=== PATIENT | female | born 1975 | race Caucasian/White ===

== ENCOUNTER 2024-10-12 12:34 | Outpatient (REF) | payer BC, SELFPAY ==
[2024-10-14 15:08] LABS: Age Gdln ACOG Testing Note (.); HPV Aptima Negative (Negative); IGP, Aptima HPV, rfx 16/18,45 Note (.)
== END 2024-10-12 12:35 | disposition home or self-care (01) ==
LOC: LAB 12:34
PROVIDERS: Visit Provider Obstetrics & Gynecology
DX: Z01.419 Encounter for gynecological examination (general) (routine) without abnormal findings (principal)
CPT/HCPCS: 87624; 88175

== ENCOUNTER 2024-10-20 13:15 | Outpatient (OUT) | payer BC, SELFPAY ==
--- NOTE | 2024-10-20 13:22 | ECG_ITS ---
[facility] Test Date: 2024-10-20 Pat Name: PETER PEÑA Department: Room: - Gender: Female Barrel Racer: : 1975 Requested By: INOCENCIO MCCARTHY Order Number: [id number] Reading MD: WANDA CLINE M.D. Measurements Intervals [place] Rate: 66 P: 65 NM: 135 QRS: 62 QRSD: 82 T: 58 QT: 383 QTc: 404 Interpretive Statements SINUS RHYTHM Normal ECG No previous ECG available for comparison Electronically Signed On 10-20-2024 21:11:30 EDT by WANDA CLINE M.D.
== END 2024-10-20 13:16 | disposition home or self-care (01) ==
LOC: PST 13:16
PROVIDERS: PCP Family Medicine Adult Medicine; Visit Provider Obstetrics & Gynecology
DX: Z01.810 Encounter for preprocedural cardiovascular examination (principal); N92.0 Excessive and frequent menstruation with regular cycle; N93.9 Abnormal uterine and vaginal bleeding, unspecified; R10.2 Pelvic and perineal pain
CPT/HCPCS: 93005

== ENCOUNTER 2024-10-29 08:37 | Day surgery (SDC) | payer BC, SELFPAY ==
[2024-10-20 13:41] VITALS: BP 111/76; PULSE 80; TEMP 36.4; O2SAT 98; BMI 23.1
[2024-10-29] VITALS (21 sets, daily range): BP systolic 106–135; BP diastolic 67–92; PULSE 61–101; TEMP 36–36.5; O2SAT 95–100; BMI 23.1
[2024-10-29 08:45] LABS: Basophils Percent Auto 0.8 % (0.2-2.0); Eosinophils Absolute Auto 0.2 10^3/uL (0.0-0.7); Eosinophils Percent Auto 4.1 % (0.9-7.0); Hematocrit 43.4 % (36.0-48.0); Hemoglobin 14.5 g/dL (12.0-16.0); Immature Granulocytes Abs Auto 0.01 10^3/uL (0.00-0.03); Immature Granulocytes Pct Auto 0.2 % (0.0-0.5); Lymphocytes Absolute Auto 1.5 10^3/uL (1.2-3.8); Lymphocytes Percent Auto 29.6 % (20.5-60.0); Mean Corpuscular HGB Conc 33.4 g/dL (29.9-35.2); Mean Corpuscular Hemoglobin 29.4 pg (26.7-34.0); Mean Platelet Volume 10.3 fL (9.5-13.5); Monocytes Absolute Auto 0.5 10^3/uL (0.3-0.8); Monocytes Percent Auto 9.1 % (1.7-12.0); Neutrophils Absolute Auto 2.9 10^3/uL (1.4-6.5); Neutrophils Percent Auto 56.2 % (43.0-75.0); Platelet Count 244 10^3/uL (150-450); Red Blood Count 4.93 10^6/uL (4.20-5.40); Red Cell Distribution Width 12.4 % (11.0-15.0); White Blood Count 5.1 10^3/uL (4.0-11.0)
[2024-10-29 09:05] LABS: HCG Quantitative 2 mIU/mL
[2024-10-29] MEDS: LACTATED RINGER'S SOLUTION 1,000 ML 50 ML IV ×4 (09:20→15:16)
--- NOTE | 2024-10-29 12:17 | P.ON_ITS ---
Brief Operative Note Date of procedure: 10/29/24 Pre-op diagnosis general: desires sterilization, menorrhagia Post-op diagnosis: same as pre-op Procedure: NAME OF PROCEDURE: robotic assisted Laparoscopic bilateral salpingectomy, with Lyla endometrial ablation with hysteroscopy, removal of iud, lt ovarian cystectomy PROCEDURE: The patient was taken back to the OR where she was prepped and draped in the normal sterile fashion after being placed in the dorsal lithotomy position, after being placed under general anesthesia without difficulty. a weighted speculum was then placed into the vagina. Pap and endometrial bx were performed without difficultyThe anterior lip was grasped with a single tooth tenaculum. please note prior to ablation, iud was removed with ring forceps after the strings where identified. The patient was then sounded to approximatley 9cm. The patient was gently sounded using Hegar dilators and the hysteroscope was passed through the cervix into the uterus where both ostia were seen. No gross evidence of polyps, fibroids or malignancy. The cervical length was noted to be 4cm. The Lyla ablation apparatus was set to approximately 5cm in length. This was placed in through the cervix and into the uterus. After the seal was tested, at that time the total ablation of 120 seconds was performed with the Lyla without difficulty. All instruments were removed from the vagina. A wet sponge stick was placed into the patient's vagina. Attention was then turned to the patient's abdomen, where a scalpel was used to make a small infraumbilical incision. The S retractors were then used to dissect the underlying layers until the fascia could be seen. The fascia was then grasped with Niesha clamps and tented up. A knife was then used to make a small incision to the fascia. The muscle was identified, at that time two sutures of #0 Vicryl on a GI needlewas then used and placed through the fascia. The peritoneum was then identified and entered bluntly. The 10-4 Jon was then placed into the patient's abdomen. This was confirmed with direct visualization of the bowel, using the laparoscope. The patient's abdomen was then insufflated using approximately 4 liters of CO2 gas. Survey of the patient's abdomen demonstrated normal appearing ovaries, uterus and tubes. A second and third lateral robotic ports, which was 8mm in size, was then placed laterally after incision was made in the skin under direct visualization. the robotic arms were engaged. The patient's tube on the patient's right side was identified. The tube was then tented up using a grasper. The ligasure was used to transect and coagulate the mesosalpingx from the fimbriated end to the insertion at the uterus, the tube was amputated and removed in its entirety.? Excellent hemostasis was noted. ?This was performed on the contralateral sideas well. Please note lt ovarian cystectomy performed using the vessel sealer. The lateral ports were then moved under direct visualization with excellent hemostasis. The abdomen was deinsufflated. All instruments were removed from the patient's abdomen. The fascia was closed using the #0 Vicryl on GI needle. The skin was closed using 4- 0 Vicryl subcuticularly. All instruments were removed from the patient's vagina as well. The patient was taken out of the dorsal lithotomy position and placed in the supine position and taken to recovery in stable condition. Sponge, lap and needle counts were correct x2. ??? Anesthesia: COLE Surgeon: Tommy Paul Prom Burn Off Operator: Claudia Tran Estimated blood loss (mL): 5 Pathology: other (tubes) Condition: stable Disposition: PACU Urinary Catheter Management Urinary Catheter Management Urethral: Cath placed during this visit: no
[2024-10-29] MEDS: HYDROMORPHONE HCL 0.5 MG/0.5 ML SYRINGE IV ×3 (13:07→13:25)
[2024-10-29] MEDS: HYDROCODONE/ACET 5-325 MG TABLET 1 TAB PO (13:27)
[2024-10-29] MEDS: PROMETHAZINE HCL 25 MG TABLET PO (15:02)
--- NOTE | 2024-10-29 15:12 | PC.NURSE ---
PATIENT UP AND AMBULATED TO THE BATHROOM TO TRY AND URINATE. BECAME NAUSEATED AND VOMITED BELLY ACID ASKED DR LINO FOR IV ZOFRAN GIVING AT THIS TIME
[2024-10-29] MEDS: ONDANSETRON PF 4 MG/2 ML VIAL IV (15:16)
== END 2024-10-29 17:05 | disposition home or self-care (01) ==
PROVIDERS: PCP Family Medicine Adult Medicine; Visit Provider Obstetrics & Gynecology
PROC: (CPT 840; principal; 2024-10-29 09:55)
DX: Z30.2 Encounter for sterilization (principal); N92.0 Excessive and frequent menstruation with regular cycle; N93.9 Abnormal uterine and vaginal bleeding, unspecified; R10.2 Pelvic and perineal pain; N83.202 Unspecified ovarian cyst, left side; Z30.432 Encounter for removal of intrauterine contraceptive device
CPT/HCPCS: 58301; 58563; 58661; 58662; 36415; 84702; 85025; J1100; J1171; J1885; J2250; J2371; J2405; J2704; J3010; Q0169

== ENCOUNTER 2025-01-06 16:17 | Outpatient (OUT) | payer BC, SELFPAY ==
--- OUTSIDE RECORDS SUMMARY | 2025-01-06 16:19 | XMS_ITS | Encounter Summary ---
Author Organization [facility] Address [address] [place] [address] Care Team Providers Care School Cleaner Name Role Phone Ernesto Head DO Primary Care Provider Encounter Details Date Type Department Care Team (Late st Contact Info) Description 11/01/2024 Abstract [facility] OB [address] [place] [address] Tommy Paul DO [address] [facility] [place] [address] Social History Tobacco Use Types Packs/Day Years Used Date Smoking Tobacco: Never Smokeless Tobacco: Never Alcohol Use Standard Drinks/Week Comments Never 0 (1 standard drink = 0.6 oz pur e alcohol) Caffeine: none Comments No Sex and Gender Information Value Date Recorded Sex Assigned at Not on file Legal Sex Female 6:53 PM EDT Gender Identity Not on file Sexual Orientation Not on file documented as of this encounter Plan of Treatment Not on file documented as of this encounter Visit Diagnoses Not on filedocumented in this encounter Care Teams School Cleaner Relationship Specialty Start Date End Date Ernesto Head DO [address] [place] [address] PCP - General Family Medicine 10/12/24 documented as of this encounter
--- OUTSIDE RECORDS SUMMARY | 2025-01-06 16:19 | XMS_ITS | Encounter Summary ---
Author Organization [facility] Address [address] [place] [address] Care Team Providers Care Education Officer Name Role Phone Ernesto Head DO Primary Care Provider Encounter Details Date Type Department Care Team (Late st Contact Info) Description 10/29/2024 Abstract [facility] OB [address] [place] [address] Tommy Paul DO [address] [facility] [place] [address] Social History Tobacco Use Types Packs/Day Years [...] on filedocumented in this encounter Care Teams Education Officer Relationship Specialty Start Date End Date Ernesto Head DO [address] [place] [address] PCP - General Family Medicine 10/12/24 documented as of this encounter
--- OUTSIDE RECORDS SUMMARY | 2025-01-06 16:19 | XMS_ITS | Encounter Summary ---
Author Organization [facility] Address [address] [place] [address] Care Team Providers Care Thoracic Surgeon Name Role Phone Ernesto Head DO Primary Care Provider Encounter Details Date Type Department Care Team (Late st Contact Info) Description 10/29/2024 Abstract [facility] OB [address] [address] Tommy Paul DO [address] [facility] [place] [address] Social History Tobacco Use Types Packs/Day Years [...] on filedocumented in this encounter Care Teams Thoracic Surgeon Relationship Specialty Start Date End Date Ernesto Head DO [address] [place] [address] PCP - General Family Medicine 10/12/24 documented as of this encounter
--- OUTSIDE RECORDS SUMMARY | 2025-01-06 16:19 | XMS_ITS | Encounter Summary ---
Author Organization [facility] Address [address] [place] [address] Care Team Providers Care Printer'S Assistant Name Role Phone JeanErnesto garcia Blank GAO Primary Care Provider [phone] Encounter Details Date Type Department Care Team (Late st Contact Info) Description 10/27/2024 Orders Only [facility] [address] [place] [address] Cami Schmitt LPN [address] [facility] [place] [address] Social History Tobacco Use Types Packs/Day Years [...] on file documented as of this encounter Procedures Procedure Name Priority Date/Time Associated Diagnosis Comments PAP SMEAR Routine 10/12/2024 12:00 AM EDT documented in this encounter Results * Pap Smear (10/12/2024 12:00 AM EDT) Swab Cervical swab / Unknown us Beverly Nurse [facility] LAB CYTOLOGY ORDERABLES Final Result EXTERNAL LAB documented in this encounter Visit Diagnoses Not on filedocumented in this encounter Care Teams Printer'S Assistant Relationship Specialty Start Date End Date Ernesto Head DO [address] [facility] [address] [place] [address] PCP - General Family Medicine 10/12/24 documented as of this encounter
--- OUTSIDE RECORDS SUMMARY | 2025-01-06 16:19 | XMS_ITS | Clinical Summary ---
Author Organization [facility] Address [address] [place] [address] Care Team Providers Care Fruit Or Nut Farmworker Name Role Phone Ernesto Head Primary Care Provider [phone] Allergies Active Allergy Reactions Criticality Noted Date Comments Sulfa Antibiotics Rash Low 09/08/2016 Medications atomoxetine (Strattera) 40 MG capsule Take 40 mg by mouth Daily Active Encounters Date Type Department Care Team Description 11/10/2024 1:10 PM EDT Office Visit [facility] OB [address] [place] [address] Agueda Stafford PA Postoperative follow-up 11/10/2024 Bamboo flowsheet [facility] OB [address] [place] [address] Agueda Stafford PA 11/01/2024 Abstract [facility] OB [facility] [place] [address] Inocencio Paul, DO 10/29/2024 Abstract [facility] OB [facility] [place] [address] Inocencio Paul, DO 10/29/2024 Abstract [facility] OB [facility] [place] [address] Inocencio Paul, DO 10/29/2024 External Result Encounter [facility] External Department Unsolicited Inocencio Paul, DO 10/29/2024 Clinisync Result Encounter [facility] External Department Unsolicited Inocencio Paul, 10/27/2024 Orders Only [facility] OB [address] [place], [place] [address] [id number] Cami Schmitt LPN 10/20/2024 Clinisync Result Encounter [facility] External Department Unsolicited Inocencio Paul DO 10/12/2024 9:00 AM EDT Office Visit [facility] [address] [place] [address] Inocencio Paul, Well woman exam with routine gynecological exam; Breast cancer screening by mammogram; Pre-operative exam; Request for sterilization; Menorrhagia with regular cycle; Abnormal uterine bleeding; Pelvic pain in female 10/12/2024 Clinisync Result Encounter [facility] External Department Unsolicited Inocencio Paul, 10/12/2024 Bamboo flowsheet [facility] OB [address] [place] [address] [place] [address] Inocencio Paul, from Last 3 Months Family History Medical History Relation Name Comments Hyperlipidemia Father Heart disease Maternal Grandfather Arthritis Maternal Grandmother Cancer Maternal Grandmother breast Heart disease Maternal Grandmother No Known Problems Mother Arthritis Paternal Grandfather Stroke Paternal Grandfather Arthritis Paternal Grandmother Relation Name Status Comments Daughter Alive Father Maternal Grandfather Maternal Grandmother Mother Alive Paternal Grandfather Paternal Grandmother Son (2) Alive Social History Tobacco Use Types Packs/Day Years Used Date Smoking Tobacco: Never Smokeless Tobacco: Never Tobacco Cessation:Counseling Given: Not Answered Alcohol Use Standard Drinks/Week Comments Never 0 (1 standard drink = 0.6 oz pur e alcohol) Caffeine: none Comments No Sex and Gender Information Value Date Recorded Sex Assigned at Not on file Legal Sex Female 6:53 PM EDT Gender Identity Not on file Sexual Orientation Not on file Last Filed Vital Signs Vital Sign Reading Time Taken Comments Blood Pressure 110/70 10/12/2024 9:12 AM EDT Pulse - - Temperature - - Respiratory Rate - - Oxygen Saturation - - Inhaled Oxygen Concentration - - Weight 60.7 kg (133 lb 12.8 oz) 10/12/2024 9:12 AM EDT Height 162.6 cm (5' 4 ) 06/11/2022 12:0 0 PM EST Body Mass Index 22.97 06/11/2022 12:00 PM EST Plan of Treatment Not on file Procedures Procedure Name Priority Date/Time Associated Diagnosis Comments PATHOLOGY REQUEST FOR LAB ANTIONETTE Routine 10/29/2024 12:34 PM EDT [facility] PREG QUANT HCG Routine 10/29/2024 8: 42 AM EDT ALL CBC WITH AUTO DIFF Routine 10/29/2024 8:42 AM EDT ECG 12-LEAD 10/20/2024 1:43 PM EDT POCT , URINE Routine 10/12/2024 9:27 AM EDT Well woman exam with routine gynecological exam Breast cancer screening by mammogram Pre-operative exam POCT URINALYSIS DIPSTICK Routine 10/12/2024 9:27 AM EDT Well woman exam with routine gynecological exam Breast cancer screening by mammogram Pre-operative exam IGP,APTIMA HPV,AGE GDLN Routine 10/12/2024 8:58 AM EDT PAP SMEAR Routine 10/12/2024 12:00 AM EDT from Last 3 Months Results * PATHOLOGY REQUEST FOR LAB ANTIONETTE (10/29/2024 12:34 PM EDT) PATHOLOGY REQUEST FOR LAB ANTIONETTE 11/04/2024 8:33 AM EDT [facility] Comment:See report. Scanned copy available in EMR. Other Topography unknown / Unknown 10/29/2024 12:34 PM EDT 11/01/2024 12:42 PM EDT Narrative [facility] - 11/04/2024 8:33 AM EDT DWIGHT FT AND OVARIAN CYST WALL us Inocencio Beverly DO LAB BLOOD ORDERABLES Final Resul t [facility] [address] [place] [address], [facility] [address] [place] [address] * [facility] PREG QUANT HCG (10/29/2024 8:42 AM EDT) Pathologist [facility] HCG QUANTITATIVE 2 mIU/mL [facility] Comment: 5-50 0.2-1 WEEK 50-500 1-2 WEEKS 100-5,000 2-3 WEEKS 500-10,000 3-4 WEEKS 1,000-50,000 4-5 WEEKS 10,000-100,000 5-6 WEEKS 15,000-200,000 6-8 WEEKS 10,000-100,000 2-3 MONTHS 10/29/2024 8:42 AM EDT 10/29/2024 8:42 AM EDT Narrative [facility] - 10/29/2024 9:05 AM EDT [facility] Final Result [facility] * ALL CBC WITH AUTO DIFF (10/29/2024 8:42 AM EDT) [facility] TB WBC 5.1 4.0 - 11.0 10 3/uL TBH TB RBC 4.93 4.20 - 5.40 10 6/uL [facility] TB HGB 14.5 12.0 - 16.0 g/dL TB TB HCT 43.4 36.0 - 48.0 % TBH TBH MCV 88.0 81.0 - 99.0 fL TBH TBH MCH 29.4 26.7 - 34.0 pg TBH TB MCHC 33.4 29.9 - 35.2 g/dL TB TB RDW 12.4 11.0 - 15.0 % TBH TBH PLT 244 150 - 450 10 3/uL TBH TB MPV 10.3 9.5 - 13.5 fL [facility]H NEUTROPHILS PERCENT AUTO 56.2 43.0 - 75.0 % TBH LYMPHOCYTES PERCENT AUTO 29.6 20.5 - 60.0 % TBH MONOCYTES PERCENT AUTO 9.1 1.7 - 12.0 % TBH TBH EO % 4.1 0.9 - 7.0 % [facility]H BASOPHILS PERCENT AUTO 0.8 0.2 - 2.0 % [facility] IMMATURE GRANULOCYTES PCT AUTO 0.2 0.0 - 0.5 % TBH NEUTROPHILS ABSOLUTE AUTO 2.9 1.4 - 6.5 10 3/uL TBH LYMPHOCYTES ABSOLUTE AUTO 1.5 1.2 - 3.8 10 3/uL TBH MONOCYTES ABSOLUTE AUTO 0.5 0.3 - 0.8 10 3/uL TBH TBH EO # 0.2 0.0 - 0.7 10 3/uL TBH BASOPHILS ABSOLUTE AUTO 0.0 0.0 - 0.1 10 3/uL [facility] IMMATURE GRANULOCYTES ABS AUTO 0.01 0.00 - 0.03 10 3/uL [facility] 10/29/2024 8:42 AM EDT 10/29/2024 8:42 AM EDT Narrative [facility] - 10/29/2024 8:53 AM EDT us Inocencio Paul DO [facility] Final Result Performing Organization Address City/State/[facility] Co de Phone Number [facility] * ECG 12-LEAD (10/20/2024 1:43 PM EDT) Anatomical Region Laterality Modality Other 10/20/2024 1:43 PM EDT Narrative 10/20/2024 9:[place] [address] Electrocardiograph Report Signed Patient: YOAJNA PEÑA MR#: [id number] : 1975 Acct:[id number] Age/Sex: 49 / F ADM Date: 10/20/24 Loc: [facility] Attending Dr: Inocencio Paul D.O. Ordering Physician: Inocencio Paul D.O. Date of Service: 10/20/24 Procedure(s): ECG 12 lead Accession Number(s): [id number] cc: [facility] Test Date: 2024-10-20 Pat Name: YOJANA PEÑA Department: Room: - Gender: Female Wood Technologist: : 1975 Requested By: INOCENCIO PAUL Order Number: [id number] Reading MD: WANDA CLINE M.D. Measurements Intervals [place] Rate: 66 P: 65 VT: 135 QRS: 62 QRSD: 82 T: 58 QT: 383 QTc: 404 Interpretive Statements SINUS RHYTHM Normal ECG No previous ECG available for comparison Electronically Signed On 10-20-2024 21:11:30 EDT by WANDA CLINE M.D. Dictated By: WANDA CLINE Signed By: 10/20/242110 DD/ 42 TD/TT: Medical Physicist: Procedure Note Radiology, Radiologist, MD - 10/20/2024 [place] [address] Electrocardiograph Report Signed Patient: YOJANA PEÑA LMR#: [id number] : 1975Acct:[id number] Age/Sex: 49 / FADM Date: 10/20/24 Loc: PST Attending Dr: Inocencio Paul D.O. Ordering Physician: Inocencio Paul D.O. Date of Service: 10/20/24 Procedure(s): ECG 12 lead Accession Number(s): [id number] cc: [facility] Test Date: 2024-10-20 Pat Name: YOJANA PEÑA Department: Room: - Gender: Female Wood Technologist: : 1975 Requested By: INOCENCIO PAUL Order Number: [id number] Reading MD: WANDA CLINE M.D. Measurements Intervals [place] Rate: 66 P: 65 VT: 135 QRS: 62 QRSD: 82 T: 58 QT: 383 QTc: 404 Interpretive Statements SINUS RHYTHM Normal ECG No previous ECG available for comparison Electronically Signed On 10-20-2024 21:11:30 EDT by WANDA CLINE M.D. Dictated By: WANDA CLINE Signed By:10/20/242110 DD/ 42 TD/TT: Medical Physicist: us Inocencio Paul DO [facility] IMAGING Final Result * POCT , urine manually resulted (10/12/2024 9:27 AM EDT) Preg Test, Ur Negative Negative Urine 10/12/2024 9:27 AM EDT [facility] POINT OF CARE TEST ENTER/EDIT OR DERABLES Final Result * (ABNORMAL) POCT urinalysis dipstick manually resulted (10/12/2024 9:27 AM EDT) Pathologist [facility] Color, UA Yellow Clarity, UA Clear Glucose, UA Negative Negative - 2000(110) ++++ mg/dL Bilirubin, UA Negative Negative - 4(70) +++ mg/dL Ketones, UA Negative Negative - 160(16) ++++ mg/dL Spec Grav, UA 1.025 1 - 1.03 Blood, UA Positive Negative - 50 Kumar/mcL Comment:trace-intact pH, UA 5.5 5 - 9 Protein, UA Negative Negative - 2000(20) ++++ mg/dL Urobilinogen, UA 0.2 0.2 - 12 mg/dL Leukocytes, UA Positive Negative - 500+++ Liana/mcL Comment:small Nitrite, UA Negative Negative - Positive Urine 10/12/2024 9:27 AM EDT [facility] [place] POINT OF CARE TEST ENTER/EDIT OR DERABLES Final Result * IGP,APTIMA HPV,AGE GDLN (10/12/2024 8:58 AM EDT) Pathologist [facility] AGE GDLN ACOG TESTING Note . [facility] Comment: TESTS RESULT FLAG UNITS REF RANGE LAB Clinician Provided Cytology Information Source.............Cervix;Endocervix No. of containers..01 ThinPrep Vial Age Algo ACOG Janel... 30-65 01 FLAG LEGEND: L-Low Normal,H-High Normal,LL-Alert Low,HH-Alert High <-Panic Low,>-Panic High,A-Abnormal,AA-Critical Abnormal Performed at: 01 [address] [facility] [place] [address] Manuela Zuluaga MD, IGP, APTIMA HPV, RFX 16/18,45 Note . [facility] Comment: TESTS RESULT FLAG UNITS REF RANGE LAB DIAGNOSIS: 02 NEGATIVE FOR INTRAEPITHELIAL LESION OR MALIGNANCY. Specimen adequacy: 02 Satisfactory for evaluation. Endocervical and/or squamous metaplastic cells (endocervical component) are present. Performed by: Sumit Terry, Field Administrator (ASCP) . 02 Note: Note 02 The Pap smear is a screening test designed to aid in the detection of premalignant and malignant conditions of the uterine cervix. It is not a diagnostic procedure and should not be used as the sole means of detecting cervical cancer. Both false-positive and false-negative reports do occur. Test Methodology: Note 02 This liquid based ThinPrep(R) pap test was screened with the use of an image guided system. HPV Genotype Reflex Note 02 Criteria not met, HPV Genotype not performed. FLAG LEGEND: L-Low Normal,H-High Normal,LL-Alert Low,HH-Alert High <-Panic Low,>-Panic High,A-Abnormal,AA-Critical Abnormal Performed at: [address] [address] Manuela Zuluaga MD, HPV APTIMA Negative Negative [facility] Comment: This nucleic acid amplification test detects fourteen high- risk HPV types (16,18,31,33,35,39,45,51,52,56,58,59,66,68) without differentiation. Performed at: =[address] [id number] Radiator Repairer: Manuela Zuluaga MD, Phone: [phone] Performed at: [address] [id number] Radiator Repairer: Manuela Zuluaga MD, Phone: [phone] 10/12/2024 8:58 AM EDT 10/12/2024 12:48 PM EDT Narrative [facility] - 10/14/2024 3:08 PM EDT BRUSH-SPATULA CERVIX ENDOCERVIX Inocencio Paul DO LAB BLOOD ORDERABLES Final Resul t Performing Organization Address [facility]/ZIP Co de Phone Number [facility] * Pap Smear (10/12/2024 12:00 AM EDT) Swab Cervical swab / Unknown Beverly Nurse [facility] Ob LAB CYTOLOGY ORDERABLES Final Result Performing Organization Address City/[facility] Co de Phone Number EXTERNAL LAB from Last 3 Months Insurance BCBS Care Teams Fruit Or Nut Farmworker Relationship Specialty Start Date End Date Ernesto Head DO [facility] [address] [place] [address] PCP - General Family Medicine 10/12/24
--- NOTE | 2025-01-06 16:20 | MM_ITS ---
Patient Name: PETER PEÑA MR#: [id number] : 1975 Exam Date: 01/06/2025 Ordering Doctor: DR INOCENCIO MCCARTHY . RADIOLOGY REPORT PROCEDURE: MM TOMOSYNTHESIS SCREENING BI COMPARISON: MG MAMM SCREEN 3D DWIGHT CAD, 07/19/2022. MG MAMM SCREEN 3D DWIGHT CAD, 02/12/2021. MG MAMM DWIGHT SCRN W CAD DIG, 05/24/2014. INDICATIONS: Screening Calculator Name NCI Breast Cancer Risk Assessment Tool 5 Year Breast Cancer Risk 1.00% Lifetime Breast Cancer Risk 10.30% Personal Breast Cancer No Personal Ovarian Cancer No Treatments None Family Cancers Grandmother-maternal with breast cancer at age 40. LOCATION: [facility] BREAST COMPOSITION: The breasts are heterogeneously dense, which may obscure small masses. FINDINGS: RIGHT BREAST: No significant suspicious finding. LEFT BREAST: No significant suspicious finding. DIAGNOSTIC CATEGORY 1--NEGATIVE. RECOMMENDATIONS: ROUTINE MAMMOGRAM AND CLINICAL EVALUATION IN 12 MONTHS. PLEASE NOTE: A NORMAL MAMMOGRAM DOES NOT EXCLUDE THE POSSIBILITY OF BREAST CANCER. A CLINICALLY SUSPICIOUS PALPABLE LUMP SHOULD BE BIOPSIED. Dictated by: Evan Rendon MD on 01/07/2025 at 14:52 Approved by: Evan Rendon MD on 01/07/2025 at 14:59
== END 2025-01-06 16:18 | disposition home or self-care (01) ==
LOC: MAMMO 16:17
PROVIDERS: PCP Family Medicine Adult Medicine; Visit Provider Obstetrics & Gynecology
DX: Z12.31 Encounter for screening mammogram for malignant neoplasm of breast (principal); Z80.3 Family history of malignant neoplasm of breast
CPT/HCPCS: 77063; 77067